=== PATIENT | male | born 1935 | race Hispanic/Latino ===

== ENCOUNTER 2016-09-09 09:29 | Outpatient (CLI) | payer MEDICARE ==
[2016-09-09 10:50] LABS: Blood Urea Nitrogen 25 mg/dL (9-20)
--- NOTE | 2016-09-09 15:21 | Cat Scan Report ---
CT CHEST, ABDOMEN AND PELVIS WITH CONTRAST INDICATION: Malignant neoplasm of prostate. COMPARISON: 04/21/2016. FINDINGS: Chest, abdomen and pelvis CT performed following oral contrast and intravenous administration of 100 cc of Omnipaque 300. CHEST: Stable heart size. Few atherosclerotic coronary and aortic calcifications again noted, including nonocclusive thrombus along the aortic arch, axial image 41, series 102. Patent central airway. No effusions or size significant adenopathy. Normal thyroid. Mild lingular scarring again noted. An approximately 4 mm noncalcified nodule in the left upper lobe posteriorly on axial image 36, series 102, faintly seen on 10/10/[address] axial series 4, image 16 measuring 3-4 mm. Another 6 mm nodule in the left lower lobe posteriorly, axial image 79 also again identified, stable dating back to September 2007. No new lung nodules or masses. ABDOMEN: Stable 7 mm calcification posterior to the suprahepatic IVC, axial image 151, series 102. Mild streakiness partly limits exam. Some motion artifact also noted. Liver, spleen, gallbladder, pancreas, adrenals, nonaneurysmal abdominal aorta with few atherosclerotic calcifications, IVC and bowel remain within normal limits. Mild to moderate colonic stool, greatest along the ascending colon. Non-hydronephrotic kidneys with stable bilateral cysts, the largest 2.9 cm exophytic right upper renal pole while the largest left interpolar cyst is approximately 2.6 cm. No ascites or significant adenopathy. PELVIS: Multiple pelvic surgical clips from prostatectomy and probable lymph node dissection again noted. Stable urinary bladder. Mild rectosigmoid stool. No free fluid or significant adenopathy. Healed infraumbilical midline ventral incision. Numerous sclerotic lesions throughout, including the pelvis, ribs, sternum, scapula and shoulders again noted with greatest involvement of the sacrum where the largest/confluent lesion on the left is approximately 6 x 5 cm on axial image 241, series 102. Few other lesions as involving T11 vertebral body on the left posteriorly may be slightly larger, now measuring 1.2 cm, axial image 160, series 102, previously 0.9 cm, axial image 327, series 2. Mid to lower lumbar facet arthropathy. Left SI joint degenerative bridging. Approximately 4 mm en bloc anterolisthesis of L2 and L3 over L4 noted. Moderate to severe multilevel lumbar disc narrowing also again seen, least affecting L5-S1. CONCLUSION: 1. Diffuse bony metastatic involvement again noted with slight interval progression of some smaller lesions possible, as described. 2. Various other stable findings, as detailed above in this patient with radical prostatectomy. Thank you for the opportunity to participate in this patient's care.
--- NOTE | 2016-09-11 12:05 | Nuclear Medicine Report ---
BONE SCAN: HISTORY: Malignant neoplasm of prostate. COMPARISON: CT chest abdomen and pelvis performed the same day. Previous bone scan dated 04/21/16. Bone scan again demonstrates multiple focal areas of abnormal increased radiotracer uptake consistent with metastatic disease. There is no overwhelming change since 04/21/16 exam. Abnormal uptake is identified in the calvarium, sternum, spine, sacrum, left scapula and left femur. IMPRESSION: No significant change in the metastatic pattern since bone scan dated 04/21/16.
== END 2016-09-09 09:30 | disposition home or self-care (01) ==
LOC: NM 09:29
PROVIDERS: ATTEND Internal Medicine Hematology & Oncology
DX: C79.51 Secondary malignant neoplasm of bone (principal); C61 Malignant neoplasm of prostate; C91.10 Chronic lymphocytic leukemia of B-cell type not having achieved remission; R21 Rash and other nonspecific skin eruption; I70.0 Atherosclerosis of aorta; I25.10 Atherosclerotic heart disease of native coronary artery without angina pectoris; R91.1 Solitary pulmonary nodule; N28.1 Cyst of kidney, acquired; M12.88 Other specific arthropathies, not elsewhere classified, other specified site; M54.9 Dorsalgia, unspecified; Z90.79 Acquired absence of other genital organ(s)
CPT/HCPCS: 36415; 71260; 74177; 78306; 82565; 84520; A9503; Q9967

== ENCOUNTER 2016-12-09 06:57 | Outpatient (CLI) | payer MEDICARE ==
--- NOTE | 2016-12-09 13:26 | Nuclear Medicine Report ---
NUCLEAR MEDICINE WHOLE-BODY BONE SCAN: 12/09/16 08:00:00 CLINICAL: Prostate cancer and increased left hip pain. COMPARISON: 09/09/16 TECHNIQUE: 25.0-millicuries technetium 99m MDP was injected intravenously and whole body scans were obtained at 3 hours. FINDINGS: Multiple focal areas of abnormal uptake in the calvarium, sternum, left scapula, thoracic spine, lumbar spine, right pubic bone, sacrum and left femur are unchanged compared to the previous exam. No new suspicious areas of uptake. Specifically, the left hip is normal. IMPRESSION: Stable skeletal metastasis with no new lesions.
== END 2016-12-09 06:58 | disposition home or self-care (01) ==
LOC: NM 06:57
PROVIDERS: ATTEND Internal Medicine Hematology & Oncology
DX: C79.51 Secondary malignant neoplasm of bone (principal); C61 Malignant neoplasm of prostate; C91.10 Chronic lymphocytic leukemia of B-cell type not having achieved remission; R21 Rash and other nonspecific skin eruption; M25.552 Pain in left hip; M89.9 Disorder of bone, unspecified
CPT/HCPCS: 78306; A9503

== ENCOUNTER 2017-01-09 09:14 | Outpatient (CLI) | payer MEDICARE ==
[2017-01-09 10:16] LABS: Blood Urea Nitrogen 24 mg/dL (9-20)
[2017-01-09] MEDS ORDERED: NACL ONE (12:02)
--- NOTE | 2017-01-09 13:48 | Cat Scan Report ---
CT CHEST WITH CONTRAST: HISTORY: Chronic lymphocytic leukemia, prostate cancer. TECHNIQUE: Helical CT following IV contrast. Sagittal and coronal reformatted images. FINDINGS: Compared to 09/09/16. Heart size is normal. There is no evidence of adenopathy within the mediastinum. Pulmonary zeina are free of mass or adenopathy. The lungs are clear. 5 mm subpleural nodules in the left upper lobe and left lower lobe are stable. No suspicious pulmonary nodule or mass has developed. The pleura is unremarkable. Numerous small sclerotic bony lesions throughout the spine, bilateral ribs and sternum are noted and unchanged. No pathologic fracture. IMPRESSION: No change since 09/09/16. There are 2 left lung pulmonary nodules measuring 5 mm which have a benign appearance. Numerous small sclerotic bony lesions suggestive of a metastatic process are stable.
--- NOTE | 2017-01-09 14:12 | Cat Scan Report ---
CT ABDOMEN AND PELVIS WITH CONTRAST INDICATION: B cell CLL, malignant neoplasm of prostate. COMPARISON: 09/09/2016. FINDINGS: Abdomen and pelvis CT performed following oral contrast and intravenous administration of 100 cc of Omnipaque 300. LUNG BASES: Mild left lower lobe atelectasis/infiltrate just above the diaphragm is new/increased, axial images 293-306, series 2. Stable 5-6 mm peripheral left lower lobe nodule posteriorly, axial image 305, series 2. Stable heart size with cardiomediastinal silhouette mildly exaggerated due to prominent pericardial fat pad. Slight nonspecific distal esophageal prominence/thickening. ABDOMEN: Stable 7 mm calcification posterior to the suprahepatic IVC, axial image 321, series 2. Liver, spleen, gallbladder, pancreas, adrenals, aorta with few atherosclerotic changes, IVC, kidneys and bowel appear stable, including bilateral renal cysts measuring up to 3 cm at the right upper renal pole and 2.8 cm left interpolar. Mild stool throughout colon/possible constipation. No ascites or significant adenopathy. PELVIS: Multiple pelvic surgical clips from prostatectomy and probable lymph node dissection again noted. Rectosigmoid stool. Unremarkable urinary bladder. No free fluid or significant adenopathy. Healed infraumbilical midline incision. Numerous sclerotic lesions throughout the imaged pelvis, spine, ribs and the lower sternum again noted, some stable in size, though a sclerotic lesion in T12 vertebral body posteriorly may be slightly increased now at 1.9 cm, sagittal image 94, previously 1.6 cm. Approximately 3-4 mm en block anterolisthesis of L2 and L3 with respect to adjacent levels again noted. Multilevel spinal degenerative spurring. Midlumbar facet arthropathy also noted. CONCLUSION: 1. Diffuse bony metastatic disease again noted, stable to slightly worse, as described. Mild atelectasis or infiltrate at the left lung base also now noted. 2. Various other stable findings, as detailed above in this patient with radical prostatectomy. Thank you for the opportunity to participate in this patient's care.
== END 2017-01-09 09:15 | disposition home or self-care (01) ==
LOC: CT 09:14
PROVIDERS: ATTEND Internal Medicine Hematology & Oncology
DX: C79.51 Secondary malignant neoplasm of bone (principal); C61 Malignant neoplasm of prostate; C91.10 Chronic lymphocytic leukemia of B-cell type not having achieved remission; R91.1 Solitary pulmonary nodule; I70.0 Atherosclerosis of aorta; N28.1 Cyst of kidney, acquired; M89.9 Disorder of bone, unspecified; M12.88 Other specific arthropathies, not elsewhere classified, other specified site; Z90.79 Acquired absence of other genital organ(s)
CPT/HCPCS: 36415; 71260; 74177; 82565; 84520; Q9967

== ENCOUNTER 2017-04-12 08:13 | Outpatient (CLI) | payer MEDICARE ==
--- NOTE | 2017-04-12 10:46 | Nuclear Medicine Report ---
BONE SCAN: History: Prostate cancer, rising PSA Findings: Compared to the bone scan dated 12/09/16. Again, numerous areas of abnormal radiotracer uptake are identified throughout the axial and proximal appendicular skeleton. Multiple calvarial lesions, spinal lesions, superior sacral lesions, bilateral rib lesions, sternal lesions, left femur lesion and right humeral lesion are again noted. The lesions appear stable in number but demonstrate markedly increase in radiotracer uptake compared to the previous study. No definite new areas of abnormal uptake. IMPRESSION: Progression of disease is demonstrated since 12/09/16. There are numerous bony metastasis as described above which appear stable in number but demonstrate marked increase in radiotracer uptake.
== END 2017-04-12 08:14 | disposition home or self-care (01) ==
LOC: NM 08:13
PROVIDERS: ATTEND Internal Medicine Hematology & Oncology
DX: C79.51 Secondary malignant neoplasm of bone (principal); C61 Malignant neoplasm of prostate; C91.10 Chronic lymphocytic leukemia of B-cell type not having achieved remission; R21 Rash and other nonspecific skin eruption
CPT/HCPCS: 78306; A9503

== ENCOUNTER 2017-08-31 08:07 | Outpatient (CLI) | payer MEDICARE ==
[2017-08-31 08:58] LABS: Blood Urea Nitrogen 23 mg/dL (9-20)
[2017-08-31] MEDS ORDERED: NACL ONE (10:58)
--- NOTE | 2017-08-31 12:50 | Nuclear Medicine Report ---
Whole body bone scan: Prostate cancer with increasing PSA. Following injection of radionuclide whole-body imaging obtained approximately 3 hours. Activity is identified in the urinary tract and there is a relatively good bone to background ratio. Comparison is made to prior exam of April 12, 2017. There are numerous diffuse areas of abnormal tracer uptake in the bony structures. Multiple new areas are identified bilaterally in several ribs. At least 3 foci of increased activities are noted in the right ilium and one on the left side. The faint area of focal increased activity is noted in the proximal left femur not previously seen. Impression: Extensive bony metastases with areas of interval increase as detailed above.
--- NOTE | 2017-08-31 16:08 | Cat Scan Report ---
FINAL REPORT EXAM: CT ABDOMEN PELVIS W CON HISTORY: PROSTATE CA RISING PSA TECHNIQUE: CT of Chest, Abdomen, and Pelvis with IV contrast. Coronal and sagittal reconstructed imaging provided. PRIORS: None currently available. FINDINGS: CHEST: No pneumothorax. No effusion. No consolidation. No endobronchial lesion. Main pulmonary arteries are unremarkable. No aortic aneurysm. No dissection. [id number]-[id number] disease. Mild mural thrombus noted at the arch. Major branch vessels are intact. Mild cardiomegaly. No pericardial effusion. Coronary artery disease identified. There is no axillary adenopathy. There is no hilar or mediastinal mass or adenopathy. ABDOMEN: Bilateral simple appearing renal cysts. There is a Bosniak 2 cyst in the left kidney 0.5 cm. Thin internal septations noted. No mural nodularity identified. Subcentimeter cortical lesions in both kidneys are too small to accurately characterize but statistically probably represent cysts. Left pelviectasis noted. Symmetrical bilateral cortical enhancement. No suspicious enhancing lesions. No hydronephrosis. Fatty liver. Subcentimeter low-density lesion in the right liver on series 2:172 measures 5 mm and is too small to accurately characterize. No suspicious enhancement. Gallbladder, stomach, spleen, pancreas, and adrenals are unremarkable. IVC is unremarkable. [id number] aortic atherosclerotic disease. No aneurysm. No dissection. No periaortic or retroperitoneal mass or adenopathy. [id number] stool in the colon. No wall thickening or inflammatory changes. Terminal ilium is unremarkable. Appendix not clearly identified. No pericecal inflammatory changes. Small bowel loops are unremarkable. No obstructive pattern. No air-fluid levels. No wall thickening. Mesentery is unremarkable. No pelvic mass or adenopathy. Postsurgical changes in the anterior abdominal and pelvic wall. PELVIS: Bladder is unremarkable. Patient status post prostatectomy. No pelvic mass or adenopathy. Inguinal regions are unremarkable. Bones: Numerous sclerotic lesions noted within the axial skeleton. Degenerative changes within the spine. Bilateral sacral ala are completely sclerotic and heterogeneous in appearance. Sclerotic lesions in the pelvis. Sclerotic lesions in both femur heads. IMPRESSION: Metastatic disease to the bones. Bilateral renal cysts and probable subcentimeter renal cysts. Fatty liver. Right hepatic lesions too small to accurately characterize. No acute chest, abdomen, or pelvic findings otherwise.
== END 2017-08-31 08:08 | disposition home or self-care (01) ==
LOC: NM 08:07
PROVIDERS: ATTEND Internal Medicine Hematology & Oncology
DX: C79.51 Secondary malignant neoplasm of bone (principal); R97.21 Rising PSA following treatment for malignant neoplasm of prostate; C91.10 Chronic lymphocytic leukemia of B-cell type not having achieved remission; I51.7 Cardiomegaly; I25.10 Atherosclerotic heart disease of native coronary artery without angina pectoris; K76.0 Fatty (change of) liver, not elsewhere classified; I74.10 Embolism and thrombosis of unspecified parts of aorta; N28.1 Cyst of kidney, acquired; I70.0 Atherosclerosis of aorta; M47.899 Other spondylosis, site unspecified; K76.89 Other specified diseases of liver; R21 Rash and other nonspecific skin eruption; Z90.79 Acquired absence of other genital organ(s)
CPT/HCPCS: 36415; 71260; 74177; 78306; 82565; 84520; A9503; Q9967

== ENCOUNTER 2017-09-04 07:37 | Day surgery (SDC) | payer MEDICARE ==
[2017-09-04 09:11] LABS: Basophils % (Auto) 0.5 % (0.0-1.8); Eosinophils # (Auto) 0.2 K/mm3 (0.0-0.4); Eosinophils % (Auto) 3.7 % (0.0-4.3); Hematocrit 41.4 % (35.5-45.6); Hemoglobin 13.9 gm/dl (11.8-15.2); Lymphocytes # (Auto) 1.7 K/mm3 (1.2-5.4); Lymphocytes % (Auto) 36.2 % (13.4-35.0); Mean Corpuscular HGB Conc 34 % (32-34); Mean Corpuscular Hemoglobin 32 pg (28-32); Mean Corpuscular Volume 95 fl (84-94); Monocytes # (Auto) 0.3 K/mm3 (0.0-0.8); Monocytes % (Auto) 7.3 % (0.0-7.3); Platelet Count 116 K/mm3 (140-440); Red Blood Count 4.35 M/mm3 (3.65-5.03); Red Cell Distribution Width 13.8 % (13.2-15.2)
[2017-09-04 09:28] LABS: INR 0.9 (0.87-1.13)
[2017-09-04 09:29] LABS: Partial Thromboplastin Time 27.5 Sec. (24.2-36.6)
[2017-09-04 09:31] LABS: BUN/Creatinine Ratio 24; Blood Urea Nitrogen 24 mg/dL (9-20); Calcium 8.8 mg/dL (8.4-10.2); Hemolysis Index 2
[2017-09-04] MEDS ORDERED: SUBLIMAZE IV ONE (10:00)
[2017-09-04] MEDS ORDERED: VERSED IV ONE (10:00)
--- NOTE | 2017-09-04 11:15 | Cat Scan Report ---
CT BIOPSY BONE DEEP: HISTORY: Prostate cancer, chronic lymphocytic leukemia. DESCRIPTION OF PROCEDURE: Informed consent was obtained. Sterile technique was utilized. Conscious sedation was accomplished with Versed and fentanyl. The patient was sedated for 20 minutes. Independent cardiorespiratory monitoring by RN. Intra-observer time of [address] guidance, an introducer needle was advanced into the right posterior iliac bone at the site of an approximate 2 cm area of sclerosis. A 2 cm 11-gauge bone core was obtained. Pathology was present to handle the sample. The patient tolerated the procedure without difficulty. IMPRESSION: Successful CT-guided biopsy of the right posterior iliac bone.
[2017-09-04 14:58] VITALS: BP 127/60
== END 2017-09-04 12:25 | disposition home or self-care (01) ==
LOC: CATHLABREC 07:37
PROVIDERS: ATTEND Internal Medicine Hematology & Oncology
DX: C79.51 Secondary malignant neoplasm of bone (principal); C61 Malignant neoplasm of prostate; C91.10 Chronic lymphocytic leukemia of B-cell type not having achieved remission; Z79.01 Long term (current) use of anticoagulants
CPT/HCPCS: 20225; 36415; 77012; 80048; 85025; 85610; 85730; 88173; 88305; 88307; 88333; 88342; J2250; J3010